=== PATIENT | male | born 1980 | race Hispanic/Latino ===

== ENCOUNTER 2021-01-28 10:06 | Outpatient (CLI) | payer OTHER ==
--- NOTE | 2021-01-28 22:37 | Treadmill Report ---
DATE OF SERVICE: 01/28/2021 TREADMILL STRESS TEST The patient is a 40-year-old gentleman who underwent a treadmill stress test following Gino protocol. He exercised for 13 minutes and 57 seconds, achieved a peak heart rate of approximately 169, which is 93% of his predicted maximum heart rate. Blood pressure response was normal. There was no chest pain or ST depression to suggest of ischemia. Rare APCs were noted. A few PVCs and 2 couplets were noted at peak exercise and in the post-exercise period. FINAL IMPRESSION: Nonischemic treadmill stress test. The patient was well conditioned. Rare APCs were noted. A few PVCs and 2 couplets were also noted. The patient was asymptomatic. TID: [id number] RECEIPT: [id number] JESUS/ELLIOTT
== END 2021-01-28 10:07 | disposition home or self-care (01) ==
LOC: CARD 10:06
DX: Z13.6 Encounter for screening for cardiovascular disorders (principal)
CPT/HCPCS: 93017